=== PATIENT | female | born 1990 | race Caucasian/White ===

== ENCOUNTER 2016-10-14 12:40 | Emergency (ER) | payer SELFPAY ==
[~2016-10-14] VITALS: Ht 170.2 cm; Wt 118.0 kg
[~2016-10-14 12:40] MED LIST: DOCU-155 PO; HYDROCODONE; IBUPROFEN; OMEPRAZOLE
[2016-10-14 12:56] VITALS: BP 121/80
== END 2016-10-14 14:33 | disposition home or self-care (01) ==
LOC: ER 14:06
DX: R05 Cough (principal); J02.9 Acute pharyngitis, unspecified; M79.1 Myalgia; F17.200 Nicotine dependence, unspecified, uncomplicated; Z91.018 Allergy to other foods
CPT/HCPCS: 99283

== ENCOUNTER 2016-12-19 04:11 | Emergency (ER) | payer SELFPAY ==
[~2016-12-19] VITALS: Ht 170.2 cm; Wt 109.0 kg
[2016-12-19] MEDS ORDERED: SODIUM CHLORIDE 0.9% 1,000 ML IV ONE (06:12)
[2016-12-19] MEDS ORDERED: ONDANSETRON HCL 4MG/2ML VIAL IV ONE (06:15)
[2016-12-19 06:49] LABS: *AMPHETAMINES SCREEN URINE NEGATIVE (NEGATIVE); *BARBITURATES SCREEN URINE NEGATIVE (NEGATIVE); *BENZODIAZEPINES SCREEN URINE NEGATIVE (NEGATIVE); *COCAINE SCREEN URINE NEGATIVE (NEGATIVE); METHADONE URINE SCREEN NEGATIVE (NEGATIVE); OPIATES URINE SCREEN NEGATIVE (NEGATIVE); PHENCYCLIDINE URINE SCREEN NEGATIVE (NEGATIVE)
[2016-12-19 06:50] LABS: CANNABINOID URINE SCREEN PRESUMTIVE POSITIVE (NEGATIVE)
[2016-12-19 06:52] LABS: BASOPHILS % 0.6 % (0.0-2.0); EOSINOPHILS % 1.1 % (0.0-5.0); HEMATOCRIT. 36.3 % (36.0-48.0); HEMOGLOBIN. 12.7 g/dL (12.0-16.0); LYMPHOCYTES % 29.4 % (20.0-50.0); MEAN CORPUSCULAR HEMOGLOBIN 31.2 pg (28.0-32.0); MEAN CORPUSCULAR VOLUME 89.1 fL (81.0-99.0); MEAN PLATELET VOLUME 9.1 fl (7.4-10.4); MONOCYTES % 7.7 % (2.0-8.0); NEUTROPHILS % 61.2 % (40.0-76.0); PLATELET 184 x1000/uL (130-400); RED BLOOD CELL COUNT 4.07 mill/uL (4.2-5.4); RED CELL DISTRIBUTION WIDTH 12.8 % (11.6-14.6)
[2016-12-19 06:58] LABS: CARBON DIOXIDE 26 mEq/L (21-32); CHLORIDE 106 mEq/L (98-107)
[2016-12-19 07:10] LABS: B-HCG QUANTITATIVE 92409 mIU/mL (<3)
[2016-12-19 07:45] LABS: CLARITY URINE CLOUDY (CLEAR); COLOR URINE YELLOW (YELLOW); GLUCOSE URINE NEGATIVE (NEGATIVE); KETONES URINE NEGATIVE (NEGATIVE); LEUKOCYTE ESTERASE URINE 1+ (NEGATIVE); NITRITE URINE NEGATIVE (NEGATIVE); OCCULT BLOOD URINE NEGATIVE (NEGATIVE); PROTEIN URINE NEGATIVE (NEGATIVE)
[2016-12-19 07:59] VITALS: BP 106/54
[2016-12-19] MEDS ORDERED: ACETAMINOPHEN 325MG TABLET PO ONE (08:00)
== END 2016-12-19 09:07 | disposition home or self-care (01) ==
LOC: ER 07:18
DX: O23.41 Unspecified infection of urinary tract in pregnancy, first trimester (principal); O21.9 Vomiting of pregnancy, unspecified; O34.11 Maternal care for benign tumor of corpus uteri, first trimester; N39.0 Urinary tract infection, site not specified; Z3A.09 9 weeks gestation of pregnancy; Z87.891 Personal history of nicotine dependence; Z91.018 Allergy to other foods
CPT/HCPCS: 36415; 76801; 76817; 80053; 80305; 81001; 81025; 84702; 85025; 86850; 86870; 86900; 86901; 96361; 96374; 99285; J2405; Z7610; J7030

== ENCOUNTER 2018-07-25 18:38 | Emergency (ER) | payer MEDICAID, OTHER ==
[~2018-07-25] VITALS: Ht 170.2 cm; Wt 110.0 kg
[2018-07-25 18:42] VITALS: BP 135/96
[2018-07-25 19:25] LABS: CLARITY URINE CLEAR (CLEAR); COLOR URINE YELLOW (YELLOW); KETONES URINE NEGATIVE (NEGATIVE); LEUKOCYTE ESTERASE URINE NEGATIVE (NEGATIVE); NITRITE URINE NEGATIVE (NEGATIVE); OCCULT BLOOD URINE 2+ (NEGATIVE); PH URINE 7.5 (4.5-8.0); PROTEIN URINE NEGATIVE (NEGATIVE); SPECIFIC GRAVITY URINE 1.007 (1.005-1.030); UROBILINOGEN URINE 0.2 E.U./dL (0.2-1.0)
== END 2018-07-25 21:22 | disposition left against medical advice (07) ==
LOC: ER 18:38
DX: Z53.21 Procedure and treatment not carried out due to patient leaving prior to being seen by health care provider (principal)
CPT/HCPCS: 81025

== ENCOUNTER 2018-11-18 14:42 | Emergency (ER) | payer MEDICAID ==
[~2018-11-18] VITALS: Ht 162.6 cm; Wt 104.0 kg
[2018-11-18] MEDS ORDERED: LORAZEPAM 2MG/ML CPJ IV ONE ×2 (16:30→19:45)
[2018-11-18 17:36] LABS: BASOPHILS % 0.6 % (0.0-2.0); EOSINOPHILS % 0.6 % (0.0-5.0); HEMATOCRIT. 44.7 % (36.0-48.0); HEMOGLOBIN. 15.1 g/dL (12.0-16.0); LYMPHOCYTES % 18.3 % (20.0-50.0); MEAN CORPUSCULAR HEMOGLOBIN 30.9 pg (28.0-32.0); MEAN CORPUSCULAR VOLUME 91.7 fL (81.0-99.0); MEAN PLATELET VOLUME 8.8 fl (7.4-10.4); MONOCYTES % 6.6 % (2.0-8.0); NEUTROPHILS % 73.9 % (40.0-76.0); PLATELET 269 x1000/uL (130-400); RED BLOOD CELL COUNT 4.88 mill/uL (4.2-5.4); RED CELL DISTRIBUTION WIDTH 13.1 % (11.6-14.6)
[2018-11-18 17:37] LABS: CHLORIDE 103 mEq/L (98-107)
[2018-11-18 17:41] LABS: ETHANOL BLOOD < 10 mg/dL
[2018-11-18 17:42] LABS: *BARBITURATES SCREEN URINE NEGATIVE (NEGATIVE); *BENZODIAZEPINES SCREEN URINE NEGATIVE (NEGATIVE); METHADONE URINE SCREEN NEGATIVE (NEGATIVE); OPIATES URINE SCREEN NEGATIVE (NEGATIVE); PHENCYCLIDINE URINE SCREEN NEGATIVE (NEGATIVE)
[2018-11-18 17:43] LABS: *AMPHETAMINES SCREEN URINE PRESUMTIVE POSITIVE (NEGATIVE); *COCAINE SCREEN URINE PRESUMTIVE POSITIVE (NEGATIVE)
[2018-11-18 17:44] LABS: CANNABINOID URINE SCREEN PRESUMTIVE POSITIVE (NEGATIVE)
[2018-11-18 17:52] LABS: HCG SCREEN NEGATIVE
[2018-11-18] MEDS ORDERED: SODIUM CHLORIDE 0.9% 1,000 ML IV ONE (19:05)
[2018-11-18 20:52] VITALS: BP 132/82
== END 2018-11-18 20:53 | disposition home or self-care (01) ==
LOC: ER 14:42
DX: R07.89 Other chest pain (principal); R06.02 Shortness of breath; R00.0 Tachycardia, unspecified; F14.10 Cocaine abuse, uncomplicated; F15.10 Other stimulant abuse, uncomplicated; F17.200 Nicotine dependence, unspecified, uncomplicated; Z91.018 Allergy to other foods; Z79.899 Other long term (current) drug therapy
CPT/HCPCS: 36415; 71045; 80053; 80305; 80320; 81025; 83690; 83880; 84484; 84703; 85025; 93005; 96374; 96375; 99284; J2060; J7030; G0480

== ENCOUNTER 2023-10-07 12:26 | Emergency (ER) | payer MEDICAID ==
[~2023-10-07] VITALS: Ht 167.6 cm; Wt 109.0 kg
[2023-10-07 12:34] VITALS: TEMP 98; O2SAT 99
[2023-10-07] MEDS: ONDANSETRON HCL 4MG/2ML INJ IV STA (13:42)
[2023-10-07] MEDS: SODIUM CHLORIDE 0.9% 1,000 ML IV ONE (13:42)
[2023-10-07] MEDS: MORPHINE SULFATE 4 MG/ML INJ (FOR IV/IM USE) IV STA (13:42)
[2023-10-07 14:13] LABS: BASOPHILS % 0.4 % (0.0-2.0); EOSINOPHILS % 0.2 % (0.0-5.0); HEMATOCRIT. 37.6 % (36.0-48.0); HEMOGLOBIN. 12.7 g/dL (12.0-16.0); LYMPHOCYTES % 8.1 % (20.0-50.0); MEAN CORPUSCULAR HEMOGLOBIN 30.4 pg (28.0-32.0); MEAN CORPUSCULAR HGB CONC 33.9 g/dL (31.0-37.0); MEAN CORPUSCULAR VOLUME 89.6 fL (81.0-99.0); MEAN PLATELET VOLUME 8.1 fl (7.4-10.4); MONOCYTES % 7.5 % (2.0-8.0); NEUTROPHILS % 83.8 % (40.0-76.0); PLATELET 224 x1000/uL (130-400); RED BLOOD CELL COUNT 4.19 mill/uL (4.2-5.4); RED CELL DISTRIBUTION WIDTH 13.3 % (11.6-14.6); WHITE BLOOD COUNT 12.2 x1000/uL (4.5-11.0)
[2023-10-07 14:22] LABS: PROTHROMBIN TIME 11.5 sec (9.6-11.0)
[2023-10-07 14:36] LABS: HCG SCREEN NEGATIVE
[2023-10-07 14:37] LABS: CARBON DIOXIDE 26 mEq/L (21-32); CHLORIDE 108 mEq/L (98-107); GLUCOSE 107 mg/dL (70-105); POTASSIUM 3.2 mEq/L (3.5-5.1); SODIUM 140 mEq/L (136-145); UREA NITROGEN BLOOD 11 mg/dL (9-23)
[2023-10-07 14:38] LABS: ALANINE AMINOTRANSFERASE 243 IU/L (10-49); ALBUMIN 4.5 g/dL (3.2-4.8); ASPARTATE AMINOTRANSFERASE 316 IU/L (<34); BILIRUBIN TOTAL 0.6 mg/dL (0.1-1.0); CALCIUM 8.5 mg/dL (8.7-10.4); CREATININE 0.7 mg/dL (0.6-1.0); PROTEIN TOTAL 7.9 g/dL (6.0-8.3)
[2023-10-07] MEDS: LIDOCAINE HCL/PF 1% 10 MG/ML 5ML VIAL INFIL ONE (15:15)
[2023-10-07] MEDS: MORPHINE SULFATE 4 MG/ML INJ (FOR IV/IM USE) IV ONE (15:20)
[2023-10-07] MEDS: ONDANSETRON HCL 4MG/2ML INJ IV ONE (15:21)
[2023-10-07 15:42] LABS: TROPONIN I HIGH SENSITIVITY < 4 ng/L (3.0-34)
[2023-10-07 16:54] VITALS: BP 131/90; PULSE 67; RESP 20
[2023-10-07] MEDS: KETOROLAC 15MG/ML VIAL IV ONE (16:54)
[2023-10-07] MEDS: HYDROMORPHONE HCL/PF 2MG/ML CPJ IV ONE (16:54)
[2023-10-07] MEDS ORDERED: HYDR-4001 MT (18:06)
[2023-10-07] MEDS ORDERED: IBUP-2028 MT (18:06)
== END 2023-10-07 18:50 | disposition home or self-care (01) ==
LOC: ER 12:26
DX: S62.101A Fracture of unspecified carpal bone, right wrist, initial encounter for closed fracture (principal); S82.891A Other fracture of right lower leg, initial encounter for closed fracture; F41.9 Anxiety disorder, unspecified; F12.10 Cannabis abuse, uncomplicated; R41.0 Disorientation, unspecified; V49.49XA Driver injured in collision with other motor vehicles in traffic accident, initial encounter; Y93.89 Activity, other specified; Y92.89 Other specified places as the place of occurrence of the external cause; Y99.8 Other external cause status
CPT/HCPCS: 80053; 84703; 85025; 85610; 84484; 36415; 71045; 72170; 73100; 73110; 73560; 73610; 70450; 71260; 72125; 74177; 25605; 99285; J1885; J3490; J2405; J1170; J2270; J7030; Z7610 ×6